=== PATIENT | male | born 1985 | race Caucasian/White ===

== ENCOUNTER 2017-01-20 18:32 | Inpatient (IN) | payer OTHER ==
[~2017-01-20] VITALS: Ht 188 cm; Wt 111.6 kg
[2017-01-20] VITALS (9 sets, daily range): BP systolic 112–155; BP diastolic 79–116
[2017-01-20] MEDS ORDERED: ADENOSINE 6 MG/2 ML (ADENOCARD) VIAL IV ONE ×2 (18:35→18:45)
[2017-01-20] MEDS ORDERED: NS IV 500 ML 500 ML ONE (18:39)
--- OUTSIDE RECORDS SUMMARY | 2017-01-20 18:39 | XMS REPORT ---
Author Author CHELY TORRES [facility] eClinicalWorks Address Unknown Phone Unavailable Care Team Providers Care Oncology Consultant Name Role Phone CHELY TORRES CP Unavailable Allergies No Known Allergies Problems Problem Type Condition ICD-9 Code Onset Dates Condition Status Assessment Influenza vaccine administered V04.81 Active Problem Need for prophylactic vaccination and inoculation, Influenza V04.81 Active Medications No Known Medications Procedures Procedure Coding System Code Date FLUARIX QUAD (3 & UP)-2014 CPT-4 70246 Dec 30, 2014 SINGLE IMMUNIZATION ADMIN CPT-4 95497 Dec 30, 2014 Results No Known Results Immunizations Vaccine Administration Date FLUARIX QUAD (3 & UP)-2014Dec 30, 2014 Summary Purpose eClinicalWorks Submission
--- OUTSIDE RECORDS SUMMARY | 2017-01-20 18:40 | XMS REPORT ---
Author Author CHELY TORRES [facility] Address [address] [place] [address] Care Team Providers Care Saw Superintendent Name Role Phone CHELY TORRES Unavailable PROBLEMS Type Condition ICD9-CM Code [id number] Code Onset Dates Condition Status SNOMED Code Problem Need for prophylactic vaccination and inoculation, Influenza V04.81 Active 011497028 Assessment Encounter for immunization Z23 Dec, Active [id number] ALLERGIES Unknown Allergies SOCIAL HISTORY No smoking Hx information available PLAN OF CARE VITAL SIGNS MEDICATIONS Unknown Medications RESULTS No Results PROCEDURES Procedure Date Ordered Related Diagnosis Body Site FLUARIX QUAD P-FREE 3 AND UP .50 2015Jan 12, 2016 SINGLE IMMUNIZATION ADMIN Jan 12, 2016 IMMUNIZATIONS Vaccine Route Administration Date Status FLUARIX QUAD P-FREE 3 AND UP .50 2015 IM Intramuscular Jan 12, 2016 Administered
--- OUTSIDE RECORDS SUMMARY | 2017-01-20 18:40 | XMS REPORT ---
Author Author CHELY TORRES [facility] Address [address] [place] [address] Care Team Providers Care Chief Analytics Officer Name Role Phone CHELY TORRES Unavailable PROBLEMS Type Condition ICD9-CM Code [id number] Code Onset Dates Condition Status SNOMED Code Problem Need for prophylactic vaccination and inoculation, Influenza V04.81 Active 204991210 ALLERGIES Unknown Allergies SOCIAL HISTORY No smoking Hx information available PLAN OF CARE VITAL SIGNS MEDICATIONS Unknown Medications RESULTS Name Result Date Reference Range INFLUENZA A & B (IN HOUSE) 2016-04-26 INFLUENZA A neg INFLUENZA B neg Control + Lot # [id number] Exp date 07/09/2018 RSV (IN HOUSE) 2016-04-26 RSV neg Control + Lot # [id number] Exp date 01/01/2018 PROCEDURES Procedure Date Ordered Related Diagnosis Body Site INFLUENZA ASSAY W/OPTIC Apr 26, 2016 RSV ASSAY W/OPTIC Apr 26, 2016 IMMUNIZATIONS No Known Immunizations
--- OUTSIDE RECORDS SUMMARY | 2017-01-20 18:40 | XMS REPORT | Continuity of Care Document ---
Author Author Formerly [facility] Address Unknown Phone Unavailable Allergies Medications Problems Date Dx Coded Attending Type Code Diagnosis Diagnosed By 01/16/2014 CHELY TORRES DO V04.81 FLU SHOT Procedures Results Encounters ACCT No. Visit Date/Time Discharge Status Pt. Type Provider Facility Loc./Unit Complaint [id number] 01/16/2014 12:45:00 01/16/2014 23: 59:59 CLS Outpatient CHELY TORRES DO
--- OUTSIDE RECORDS SUMMARY | 2017-01-20 18:40 | XMS REPORT ---
Author Author IZAIAH DELGADO Organization [facility] Address [address] [place] [address] Phone Unavailable Care Team Providers Care Fresh Work Inspector Name Role Phone IZAIAH DELGADO Unavailable Unavailable PROBLEMS Type Condition ICD9-CM Code IMF87-FY Code Onset Dates Condition Status SNOMED Code Problem Need for prophylactic vaccination and inoculation, Influenza V04.81 Active 443323177 Assessment Encounter for dental examination and cleaning without abnormal findings Z01.20 Dec, Active [id number] ALLERGIES Substance Reaction Event Type Date Status SEASONAL Unknown Non Drug Allergy Dec, Active SOCIAL HISTORY No smoking Hx information available PLAN OF CARE VITAL SIGNS MEDICATIONS Medication Instructions Dosage Frequency Start Date End Date Duration Status Jeanne Active RESULTS No Results PROCEDURES Procedure Date Ordered Related Diagnosis Body Site Billing Notes on claim Dec 23, 2015 COMP ORAL EVALUATION - NEW/EST PT Dec 23, 2015 INTRAORL-PERIAPICAL 1 FILM [id number] Dec 23, 2015 TOPICAL FLUORIDE VARNISH Dec 23, 2015 PROPHYLAXIS - ADULT Dec 23, 2015 [facility] Employee/Board adjustment Dec 23, 2015 INTRAORL-PERIAPICAL EA ADD FILM Dec 23, 2015 INTRAORL-PERIAPICAL EA ADD FILM Dec 23, 2015 BITEWINGS - FOUR FILMS Dec 23, 2015 INTRAORL-PERIAPICAL EA ADD FILM Dec 23, 2015 IMMUNIZATIONS No Known Immunizations
[2017-01-20] MEDS ORDERED: NS IV 500 ML 500 ML IV ONE (18:43)
[2017-01-20] MEDS ORDERED: ASPIRIN 81 MG CHEW (CHILDREN'S ASA) PO ONE (18:45)
--- NOTE | 2017-01-20 18:47 | ED Chest Pain ---
General Chief Complaint: Chest Pain Stated Complaint: CHEST PAIN Source: patient Exam Limitations: no limitations History of Present Illness Time seen by provider: 18:35 Initial Comments Patient has ER by private conveyance with chief complaint is having some chest pain early this afternoon that he took Tylenol extra strength for but then began to have a rapid palpitation-like sensation in his chest and felt lightheaded. He's never had anything like this before is no history of coronary disease nor family history of early coronary disease 40-50. He has no problems with upper cholesterol he may, thyroid, blood pressure, previous coronary disease, nausea, vomiting, numbness or tingling, shortness of breath or cough. No history of dysrhythmias. Only surgical history is tonsils and adenoids and dental surgeries. Prior to the sensation she was at home off work on his day off relaxing on the couch. He drinks alcohol only occasionally once or twice a week and then one to 2 beers at a time. Never to excess start to drop and numbness. He denies recreational drug use and is never smoked. Allergies and Home Medications Allergies Coded Allergies: No Known Drug Allergies (Unverified , 01/20/17) Home Medications Fexofenadine HCl 180 Mg Tablet, 180 MG PO DAILY, (Reported) Review of Systems Constitutional: No chills, No diaphoresis, No fever EENTM: No Blurred Vision, No Double Vision Respiratory: Denies Cough, Denies Shortness of Air Cardiovascular: Chest Pain (mild midsternal), Denies Edema, Denies Irregular Heart Rate, Lightheadedness, Palpitations, Denies Syncope Gastrointestinal: Denies Abdominal Pain, Denies Constipated, Denies Diarrhea, Denies Nausea, Denies Vomiting Genitourinary: Denies Burning, Denies Discharge Musculoskeletal: No back pain, No joint pain Skin: No pruritus, No rash Psychiatric/Neurological: Denies Headache, Denies Numbness, Denies Paresthesia Past Dyiswtg-Ohaowy-Utrrfj Hx Patient Social History Alcohol Use: Occasionally Uses Alcohol Beverage of Choice: Beer Recreational Drug Use: No Smoking Status: Never a Smoker 2nd Hand Smoke Exposure: No Recent Foreign Travel: No Contact w/Someone Who Travel: No Physical Exam Vital Signs Vital Sign - Last 12Hours 01/20/17 01/20/17 18:32 18:35 Temp 97.9 Pulse 128 Resp 21 B/P (MAP) 186/115 Pulse Ox 100 O2 Delivery Room Air Capillary Refill : General Appearance: WD/WN, Anxious, Mild Distress HEENT: PERRL/EOMI, Pharynx Normal Neck: Full Range of Motion, Supple Respiratory: Chest Non Tender, Lungs Clear, Normal Breath Sounds, No Accessory Muscle Use, No Respiratory Distress Cardiovascular: Regular Rate, Rhythm, No Edema, No Murmur, Normal Peripheral Pulses, Tachycardia Gastrointestinal: Normal Bowel Sounds, Non Tender, Soft Extremity: Normal Capillary Refill, Normal Inspection, Non Tender, No Pedal Edema Neurologic/Psychiatric: Alert, Oriented x3 Skin: Normal Color, Warm/Dry Lymphatic: No Adenopathy Progress/Results/Core Measures Results/Orders Lab Results Laboratory Tests Test 01/20/17 18:00 01/20/17 18:40 Range/Units Erythrocyte Sedimentation Rate 1 0-15 MM/HR Thyroid Stimulating Hormone (TSH) 2.18 0.35-4.94 UIU/ML White Blood Count 12.5 H 4.3-11.0 10^3/uL Red Blood Count 5.70 4.35-5.85 10^6/uL Hemoglobin 17.2 13.3-17.7 G/DL Hematocrit 49 40-54 % Mean Corpuscular Volume 87 80-99 FL Mean Corpuscular Hemoglobin 30 25-34 PG Mean Corpuscular Hemoglobin Concent 35 32-36 G/DL Red Cell Distribution Width 12.1 10.0-14.5 % Platelet Count 315 130-400 10^3/uL Mean Platelet Volume 9.5 7.4-10.4 FL Neutrophils (%) (Auto) 57 42-75 % Lymphocytes (%) (Auto) 32 12-44 % Monocytes (%) (Auto) 9 0-12 % Eosinophils (%) (Auto) 1 0-10 % Basophils (%) (Auto) 1 0-10 % Neutrophils # (Auto) 7.1 1.8-7.8 X 10^3 Lymphocytes # (Auto) 4.0 1.0-4.0 X 10^3 Monocytes # (Auto) 1.2 H 0.0-1.0 X 10^3 Eosinophils # (Auto) 0.2 0.0-0.3 10^3/uL Basophils # (Auto) 0.1 0.0-0.1 10^3/uL Prothrombin Time 13.0 12.2-14.7 SEC INR Comment 1.0 0.8-1.4 Activated Partial Thromboplast Time 28 24-35 SEC D-Dimer < 0.27 0.00-0.49 UG/ML Sodium Level 141 135-145 MMOL/L Potassium Level 3.1 L 3.6-5.0 MMOL/L Chloride Level 104 98-107 MMOL/L Carbon Dioxide Level 24 21-32 MMOL/L Anion Gap 13 5-14 MMOL/L Blood Urea Nitrogen 14 7-18 MG/DL Creatinine 1.38 H 0.60-1.30 MG/DL Estimat Glomerular Filtration Rate 59 BUN/Creatinine Ratio 10 Glucose Level 106 H 70-105 MG/DL Calcium Level 9.7 8.5-10.1 MG/DL Magnesium Level 2.3 1.8-2.4 MG/DL Total Bilirubin 1.4 H 0.1-1.0 MG/DL Aspartate Amino Transf (AST/SGOT) 27 5-34 U/L Alanine Aminotransferase (ALT/SGPT) 39 0-55 U/L Alkaline Phosphatase 50 40-136 U/L Myoglobin 25.6 10.0-92.0 NG/ML Troponin I < 0.30 <0.30 NG/ML Total Protein 9.1 H 6.4-8.2 GM/DL Albumin 5.0 H 3.2-4.5 GM/DL My Orders Orders - DONNA CAMPBELL Adenosine Injection (Adenocard Injection (01/20/17 18:35) Cbc With Automated Diff (01/20/17 18:43) Magnesium (01/20/17 18:43) Chest 1 View, Ap/Pa Only (01/20/17 18:43) Ekg Tracing (01/20/17 18:43) Cardiac Profile 1 (01/20/17 18:43) Comprehensive Metabolic Panel (01/20/17 18:43) Myoglobin Serum (01/20/17 18:43) Protime With Inr (01/20/17 18:43) Partial Thromboplastin Time (01/20/17 18:43) O2 (01/20/17 18:43) Monitor-Rhythm Ecg Trace Only (01/20/17 18:43) Lipid Panel (01/21/17 06:00) Aspirin Chewable Tablet (Baby Aspirin Ch (01/20/17 18:45) Saline Lock/Iv-Start (01/20/17 18:43) Saline Lock/Iv-Start (01/20/17 18:43) Ns Iv 500 Ml (Sodium Chloride 0.9%) (01/20/17 18:43) Adenosine Injection (Adenocard Injection (01/20/17 18:45) Ns Iv 500 Ml (Sodium Chloride 0.9%) (01/20/17 18:39) Diltiazem Injection (Cardizem Injection) (01/20/17 19:00) Sodium Chloride (Ad... W/Diltiazem Drip (01/20/17 19:00) Medications Given in ED Current Medications Medications Dose Ordered Sig/Meena Route Start Time Stop Time Status Last Admin Dose Admin Adenosine 6 mg ONCE ONCE IV 01/20/17 18:45 01/20/17 18:46 DC 01/20/17 18:50 6 MG Adenosine 6 mg STK-MED ONCE IV 01/20/17 18:35 01/20/17 18:43 DC 01/20/17 18:52 12 MG Aspirin 324 mg ONCE ONCE PO 01/20/17 18:45 01/20/17 18:46 DC 01/20/17 19:11 324 MG Diltiazem HCl 10 mg ONCE ONCE IVP 01/20/17 19:00 01/20/17 19:01 DC 01/20/17 19:11 10 MG Sodium Chloride 500 ml @ 0 mls/hr Q0M ONCE IV 01/20/17 18:43 01/20/17 18:46 DC 01/20/17 18:48 500 MLS/HR Vital Signs/I&O Vital Sign - Last 12Hours 01/20/17 01/20/17 01/20/17 18:32 18:35 19:11 Temp 97.9 97.9 Pulse 128 128 Resp 21 21 B/P (MAP) 186/115 186/115 Pulse Ox 100 100 O2 Delivery Room Air ECG Initial ECG Impression Date: Jan 20, 2017 Initial ECG Impression Time: 18:34 Initial ECG Rate: 129 Initial ECG Rhythm: S.Tach Initial ECG Intervals: Normal (148 ms and regular) Initial ECG Intervals QRS 94 ms and regular; QTC 434 seconds. Initial ECG Impression: SVT Initial ECG Comparisson: No Previous ECG Available Comment No T-wave elevation or depression. P waves visible and are regular and walked with the QRS at approximately 4 boxes. Diagnostic Imaging Diagonstic Imaging: Xray Plain Films/CT/US/NM/MRI: chest Comments Unremarkable for acute cardiopulmonary processes. NAME: MISAEL ABRAMS MED REC#: [id number] PHYSICIAN: DONNA CAMPBELL MD CC: RODNEY OROURKE DO; DONNA CAMPBELL Page 1 of [address] [facility], [place], [place] CC: RODNEY OROURKE DO; DONNA CAMPBELL Page 1 of 1 RADIOLOGY REPORT NAME: MISAEL ABRAMS MED REC#: [id number] PT STATUS: REG ER : 1985 PHYSICIAN: DONNA CAMPBELL MD ADMIT DATE: 01/20/17/ER Signed Date of Exam: 01/20/17 CHEST 1 VIEW, AP/PA ONLY INDICATION: Chest pain. TECHNIQUE: Single view chest 6:59 PM. CORRELATION STUDY: None FINDINGS: The heart size, mediastinal configuration and pulmonary vascularity are within normal limits. The lungs are clear with no consolidating infiltrate. There is no significant effusion or pneumothorax. IMPRESSION: 1. Negative portable chest. Dictated by: Dictated on workstation # [id number] Dict: 01/20/171905 Trans: 01/20/171905 Interpreted by: RODNEY OROURKE DO Electronically signed by: RODNEY OROURKE DO 01/20/171905 Reviewed: Reviewed by Me Departure Communication (Admissions) Time/Spoke to Admitting Phy: 19:18 Communication Discussed the case with Dr. Hugo Valle and she agrees to see the patient. Time/Spoke to Consulting Phy: 09:00 Communication/Consulting Spoke with Dr. Palomino discussed the case and EKG findings and he recommends Cardizem 10 mg bolus followed by Cardizem 10 mg per hour drip and he will see the patient. Because the white count recommend getting an ESR. Replace potassium orally and keep some fluids running normal saline at 100 mL an hour and make him nothing by mouth. 2005: Dr. Palomino came down and saw the patient and we discussed the EKG findings he feels is more likely an inappropriate sinus tachycardia. ESR was not remarkable he'll continue his workup inpatient. Impression Impression: Primary Impression: Supraventricular tachycardia Additional Impressions: Chest pain Qualified Codes: R07.9 - Chest pain, unspecified RUDY (acute kidney injury) Hypokalemia Disposition: ADMITTED INPATIENT Condition: Stable Admissions Decision to Admit Reason: Admit from ER (General) Decision to Admit/Date: Jan 20, 2017 Time/Decision to Admit Time: 20:16 Departure-Patient Inst. Referrals: UNKNOWN (PCP) Primary Care Physician Copy Copies To 1: CHIQUITA PALOMINO MD Copies To 2: HUGO VALLE MD, TITUS J Jan 20, 2017 18:47
[2017-01-20] MEDS ORDERED: DILTIAZEM DRIP 100 MG in SODIUM CHLORIDE (ADD-VANTAGE) 100 ML IV SCH ×2 (19:00→21:00)
[2017-01-20] MEDS ORDERED: DILTIAZEM 25 MG/5 ML INJ (CARDIZEM) VIAL IVP ONE (19:00)
[2017-01-20 19:02] LABS: BASOPHILS # (AUTO) 0.1 10^3/uL (0.0-0.1); BASOPHILS % (AUTO) 1 % (0-10); EOSINOPHILS # (AUTO) 0.2 10^3/uL (0.0-0.3); EOSINOPHILS % (AUTO) 1 % (0-10); LYMPHOCYTES % (AUTO) 32 % (12-44); MEAN CORPUSCULAR HEMOGLOBIN 30 PG (25-34); MEAN CORPUSCULAR HGB CONC 35 G/DL (32-36); MEAN CORPUSCULAR VOLUME 87 FL (80-99); MEAN PLATELET VOLUME 9.5 FL (7.4-10.4); MONOCYTES # (AUTO) 1.2 X 10^3 (0.0-1.0); MONOCYTES % (AUTO) 9 % (0-12); NEUTROPHILS # (AUTO) 7.1 X 10^3 (1.8-7.8); NEUTROPHILS % (AUTO) 57 % (42-75); PLATELET COUNT 315 10^3/uL (130-400); RED CELL DISTRIBUTION WIDTH 12.1 % (10.0-14.5); WHITE BLOOD COUNT 12.5 10^3/uL (4.3-11.0)
--- NOTE | 2017-01-20 19:09 | Diagnostic Imaging Report ---
INDICATION: Chest pain. TECHNIQUE: Single view chest 6:59 PM. CORRELATION STUDY: None FINDINGS: The heart size, mediastinal configuration and pulmonary vascularity are within normal limits. The lungs are clear with no consolidating infiltrate. There is no significant effusion or pneumothorax. IMPRESSION: 1. Negative portable chest. Dictated by: Dictated on workstation # [id number]
[2017-01-20 19:11] LABS: ALANINE AMINOTRANSFERASE 39 U/L (0-55); ANION GAP 13 MMOL/L (5-14); ASPARTATE AMINO TRANSFERASE 27 U/L (5-34); BILIRUBIN,TOTAL 1.4 MG/DL (0.1-1.0); BLOOD UREA NITROGEN 14 MG/DL (7-18); BUN/CREATININE RATIO 10; CALCIUM 9.7 MG/DL (8.5-10.1); CARBON DIOXIDE 24 MMOL/L (21-32); CHLORIDE 104 MMOL/L (98-107); CREATININE SERUM 1.38 MG/DL (0.60-1.30); GFR ESTIMATED 59; GLUCOSE 106 MG/DL (70-105); MAGNESIUM 2.3 MG/DL (1.8-2.4); POTASSIUM 3.1 MMOL/L (3.6-5.0); SODIUM 141 MMOL/L (135-145); TOTAL PROTEIN 9.1 GM/DL (6.4-8.2)
[2017-01-20] MEDS ORDERED: FEXO180T84 PO (19:12)
[2017-01-20 19:18] LABS: MYOGLOBIN SERUM 25.6 NG/ML (10.0-92.0)
[2017-01-20] MEDS ORDERED: KCL 20 MEQ TAB (K-DUR) PO ONE (19:30)
--- OUTSIDE RECORDS SUMMARY | 2017-01-20 20:05 | XMS REPORT | Continuity of Care Document ---
Author Author [facility] Address Unknown Phone Unavailable Allergies Medications Problems Date Dx Coded Attending Type Code Diagnosis Diagnosed By 01/16/2014 CHELY TORRES DO V04.81 FLU SHOT Procedures Results Encounters ACCT No. Visit Date/Time Discharge Status Pt. Type Provider Facility Loc./Unit Complaint [id number] 01/16/2014 12:45:00 01/16/2014 23: 59:59 CLS Outpatient CHELY TORRES DO
[2017-01-20] MEDS ORDERED: ASPIRIN E.C. 325 MG (ECOTRIN) TABLET PO NR (20:15)
--- NOTE | 2017-01-20 20:16 | Cardiology History & Physical ---
HPI-Cardiology Cardiology Consultation Date of Consultation 01/20/17 Date of Admission Time Seen by Provider: 20:10 Indication: chest pain, palpitation HPI 32-year-old gentleman with no significant past medical history except for seasonal allergy for which he take kqzm-cdu-caywdic medication, was in his usual state of health until this morning when he had mild left sided chest discomfort, became more persistent in the afternoon and started to have palpitation, felt heart rate around 160, came into the emergency room and noted to be with a heart rate around 138 appeared to be sinus tachycardia, given Adenosine without improvement, started on Cardizem drip, upper my evaluation was feeling better, heart rate is in the upper 80s and 90s, reporting improvement in his chest pain. The pain appeared to be repaired reducible on the left upper side of his chest. No nausea vomiting, no diarrhea, no fever or chills. Noted to have mild leukocytosis. PMH-Cardiology Seasonal Allergies Seasonal Allergies: No Surgeries Yes (WISDOM TEETH) Respiratory No Cardiovascular No Neurological No Genitourinary No Gastrointestinal No Musculoskeletal No Endocrine No HEENT No Cancer No Psychosocial No Social History Patient Social History Marrital Status: Employed/Student: employed Alcohol Use: Occasionally Uses Recreational Drug Use: No Smoking: Never smoker Recent Foreign Travel: No Contact w/other who traveled: No Recent Infectious Disease Expo: No Family Hx Other Family history of thyroid disease, hypertension ROS-Cardiology Review of Systems General: No Chills, No Night Sweats, No Fatigue, No Malaise, No Appetite HEENT: No Head Aches, No Visual Changes, No Eye Pain, No Ear Pain, No Dysphasia , No Sinus Congestion, No Post Nasal Drip, No Sore Throat Pulmonary: No Dyspnea, No Cough, No Pleuritic Chest Pain Cardiovascular: Chest Pain, Palpitations, Lt Headedness, No: Orthopnea, Paroxysmal Noc. Dyspnea, Edema Gastrointestinal: No: Nausea, Vomiting, Abdominal Pain, Diarrhea, Constipation , Melena, Hematochezia Genitourinary: No Dysuria, No Frequency, No Incontinence, No Hematuria, No Retention Musculoskeletal: No: neck pain, shoulder pain, arm pain, back pain, hand pain, leg pain, foot pain Neurological: No: Weakness, Numbness, Incoordination, Change in speech, Confusion, Seizures Home Medications & Allergies Allergies: Coded Allergies: No Known Drug Allergies (Unverified , 01/20/17) Home Medication List Reviewed: Yes Exam-Cardiology Vital Signs Vital Signs Date Time Temp Pulse Resp B/P (MAP) Pulse Ox O2 Delivery O2 Flow Rate FiO2 01/20/17 19:11 97.9 128 21 186/115 100 01/20/17 18:35 Room Air Exam General Appearance: Alert, Oriented X3, Cooperative, No Acute Distress HEENT: Atraumatic, PERRLA Respiratory: Clear to Auscultation, Normal Air Movement Cardiovascular: Regular Rate, Normal S1, Normal S2, No Murmurs Abdominal: Normal Bowel Sounds, Soft, No Tenderness, No Hepatosplenomegaly, No Masses Extremities: No Clubbing, No Cyanosis, No Edema, Normal Pulses, No Tenderness/ Swelling Skin: No Rashes, No Breakdown, No Significant Lesion Neuro: Normal Gait, Normal Speech, Strength at 5/5 X4 Ext, Normal Tone, Sensation Intact Psych/Mental Status: Mental Status NL, Mood NL Results Labs Labs Laboratory Tests 01/20/17 18:00: Erythrocyte Sedimentation Rate 1 01/20/17 18:40: White Blood Count 12.5H, Red Blood Count 5.70, Hemoglobin 17.2, Hematocrit 49, Mean Corpuscular Volume 87, Mean Corpuscular Hemoglobin 30, Mean Corpuscular Hemoglobin Concent 35, Red Cell Distribution Width 12.1, Platelet Count 315, Mean Platelet Volume 9.5, Neutrophils (%) (Auto) 57, Lymphocytes (%) (Auto) 32, Monocytes (%) (Auto) 9, Eosinophils (%) (Auto) 1, Basophils (%) (Auto) 1, Neutrophils # (Auto) 7.1, Lymphocytes # (Auto) 4.0, Monocytes # (Auto) 1.2H, Eosinophils # (Auto) 0.2, Basophils # (Auto) 0.1, Prothrombin Time 13.0, INR Comment 1.0, Activated Partial Thromboplast Time 28, Sodium Level 141, Potassium Level 3.1L, Chloride Level 104, Carbon Dioxide Level 24, Anion Gap 13 , Blood Urea Nitrogen 14, Creatinine 1.38H, Estimat Glomerular Filtration Rate 59, BUN/Creatinine Ratio 10, Glucose Level 106H, Calcium Level 9.7, Magnesium Level 2.3, Total Bilirubin 1.4H, Aspartate Amino Transf (AST/SGOT) 27, Alanine Aminotransferase (ALT/SGPT) 39, Alkaline Phosphatase 50, Myoglobin 25.6, Troponin I < 0.30, Total Protein 9.1H, Albumin 5.0H A/P-Cardiology Admission Diagnosis (1) Chest pain Qualifiers: Qualified Codes: R07.9 - Chest pain, unspecified Status: Acute Assessment & Plan: EKG appeared to have no acute ischemic abnormality, cardiac enzymes are normal, I will continue monitoring overnight, chest pain is probably due to tachycardia. Pain is atypical, slightly reproducible. Reporting improvement at this point (2) Supraventricular tachycardia Status: Acute Assessment & Plan: Appear to be in sinus tachycardia, responded to Cardizem, mild dehydration, receiving IV fluid, I will evaluate TSH and d-dimer. Continue with IV fluid. Monitor closely. (3) RUDY (acute kidney injury) Status: Acute Assessment & Plan: Mild renal insufficiency, could be secondary to dehydration , receiving IV fluids, monitor electrolytes (4) Hypokalemia Status: Acute Assessment & Plan: Received potassium in the emergency room, monitor electrolytes (5) Seasonal allergies Qualifiers: Qualified Codes: J30.1 - Allergic rhinitis due to pollen Status: Chronic Clinical Quality Measures AMI/AHF: ASA po Prior to arrival: CHIQUITA Nelson MD Jan 20, 2017 20:16
[2017-01-20] MEDS ORDERED: ONDANSETRON 4 MG/2 ML (SDV) Z0FRAN IV PRN (20:45)
[2017-01-20] MEDS ORDERED: fentaNYL INJECTION 100 MCG/2 ML AMP IV PRN (20:45)
[2017-01-20] MEDS ORDERED: CATHETER FLUSH 10 ML SYR IV PRN (20:45)
[2017-01-20] MEDS ORDERED: NITROGLYCERIN 0.4 MG SL TABS BTL 25'S SL PRN (20:45)
[2017-01-20] MEDS: NS IV 1000 ML 1,000 ML IV SCH ×2 (20:53)
[2017-01-20] MEDS ORDERED: ATORVASTATIN 40 MG (LIPITOR) TABLET PO SCH (21:00)
[2017-01-21] VITALS (11 sets, daily range): BP systolic 106–124; BP diastolic 72–94
[2017-01-21 04:55] LABS: BASOPHILS # (AUTO) 0.1 10^3/uL (0.0-0.1); BASOPHILS % (AUTO) 1 % (0-10); EOSINOPHILS # (AUTO) 0.1 10^3/uL (0.0-0.3); EOSINOPHILS % (AUTO) 1 % (0-10); LYMPHOCYTES % (AUTO) 32 % (12-44); MEAN CORPUSCULAR HEMOGLOBIN 30 PG (25-34); MEAN CORPUSCULAR HGB CONC 34 G/DL (32-36); MEAN CORPUSCULAR VOLUME 88 FL (80-99); MEAN PLATELET VOLUME 9.5 FL (7.4-10.4); MONOCYTES # (AUTO) 0.8 X 10^3 (0.0-1.0); MONOCYTES % (AUTO) 8 % (0-12); NEUTROPHILS # (AUTO) 5.6 X 10^3 (1.8-7.8); NEUTROPHILS % (AUTO) 59 % (42-75); PLATELET COUNT 256 10^3/uL (130-400); RED BLOOD COUNT 5.26 10^6/uL (4.35-5.85); RED CELL DISTRIBUTION WIDTH 12.1 % (10.0-14.5); WHITE BLOOD COUNT 9.6 10^3/uL (4.3-11.0)
[2017-01-21 05:21] LABS: ALANINE AMINOTRANSFERASE 33 U/L (0-55); ALBUMIN 4.2 GM/DL (3.2-4.5); ANION GAP 10 MMOL/L (5-14); ASPARTATE AMINO TRANSFERASE 20 U/L (5-34); BILIRUBIN,TOTAL 1.6 MG/DL (0.1-1.0); BLOOD UREA NITROGEN 11 MG/DL (7-18); BUN/CREATININE RATIO 10; CALCIUM 9.1 MG/DL (8.5-10.1); CARBON DIOXIDE 24 MMOL/L (21-32); CHLORIDE 108 MMOL/L (98-107); CHOLESTEROL 227 MG/DL (< 200); CREATININE SERUM 1.08 MG/DL (0.60-1.30); DIRECT LDL 160 MG/DL (1-129); GFR ESTIMATED > 60; GLUCOSE 89 MG/DL (70-105); MAGNESIUM 2.4 MG/DL (1.8-2.4); PHOSPHORUS 2.9 MG/DL (2.3-4.7); POTASSIUM 3.5 MMOL/L (3.6-5.0); SODIUM 142 MMOL/L (135-145); TOTAL PROTEIN 7.5 GM/DL (6.4-8.2); TRIGLYCERIDES 77 MG/DL (<150); VLDL CHOLESTEROL 15 MG/DL (5-40)
[2017-01-21 05:27] LABS: TROPONIN I < 0.30 NG/ML (<0.30)
[2017-01-21] MEDS: NS IV 1000 ML 1,000 ML IV SCH ×2 (05:58→06:09)
[2017-01-21] MEDS ORDERED: KCL 20 MEQ TAB (K-DUR) PO SCH (06:00)
[2017-01-21] MEDS ORDERED: KCL 20 MEQ TAB (K-DUR) PO ONE (06:00)
[2017-01-21] MEDS ORDERED: MAGNESIUM 1 GM/100 ML IVPB 100 ML IV SCH (06:00)
[2017-01-21] MEDS ORDERED: POTASSIUM CL 10MEQ/50ML IVPB 50 ML IV SCH (06:00)
[2017-01-21] MEDS ORDERED: ASPIRIN E.C. 81 MG (ECOTRIN) TAB PO SCH (09:00)
[2017-01-21] MEDS ORDERED: ASPIRIN E.C. 325 MG (ECOTRIN) TABLET PO SCH (09:00)
--- NOTE | 2017-01-21 09:25 | Short Stay Summary ---
History of Present Illness History of Present Illness Reason for visit/HPI 32-year-old gentleman with no significant past medical history except for seasonal allergy for which he take [id number] medication, was in his usual state of health until this morning when he had mild left sided chest discomfort, became more persistent in the afternoon and started to have palpitation, felt heart rate around 160, came into the emergency room and noted to be with a heart rate around 138 appeared to be sinus tachycardia, given Adenosine without improvement, started on Cardizem drip, upper my evaluation was feeling better, heart rate is in the upper 80s and 90s, reporting improvement in his chest pain. The pain appeared to be repaired reducible on the left upper side of his chest. No nausea vomiting, no diarrhea, no fever or chills. Noted to have mild leukocytosis. Date of Admission Jan 20, 2017 at 19:25 Date of Discharge January 21, 2017 Time Seen by Provider: 09:22 Attending Physician Nina Camacho MD Admitting Physician Sky[place],[facility] Allergies and Home Medications Allergies Coded Allergies: No Known Drug Allergies (Unverified , 01/20/17) Home Medications Fexofenadine HCl 180 Mg Tablet, 180 MG PO DAILY, (Reported) Past [id number] Hx Patient Social History Marrital Status: Employed/Student: employed Alcohol Use: Occasionally Uses Alcohol Beverage of Choice: Beer Recreational Drug Use: No Smoking Status: Never a Smoker 2nd Hand Smoke Exposure: No Physical Abuse Screen: No Sexual Abuse: No Recent Foreign Travel: No Contact w/other who traveled: No Recent Hopitalizations: No Recent Infectious Disease Expo: No Immunizations Up To Date Pediatric: No Date of Influenza Vaccine: Jan 11, 2017 Seasonal Allergies Seasonal Allergies: Yes Surgeries Yes (WISDOM TEETH,Left shoulder) Adenoidectomy, Orthopedic, Tonsillectomy Respiratory Yes Currently Using CPAP: No Currently Using BIPAP: No Cardiovascular No Neurological No Reproductive System Sexually Transmitted Disease: No HIV/AIDS: No Genitourinary No Gastrointestinal No Musculoskeletal No Endocrine History of Endocrine Disorders: No HEENT History of HEENT Disorders: No Loss of Vision: Denies Hearing Impairment: Denies Cancer No Psychosocial History of Psychiatric Problem: No Integumentary History of Skin or Integumenta: Yes Skin/Integumentary Disorders: Eczema Blood Transfusions History of Blood Disorders: No Adverse Reaction to a Blood Tr: No Family Medical History Family Hx: Dysphasia Hypercholesterolemia 19 FATHER, Onset:40's - 50 19 MOTHER, Onset:Unknown Hypertension 19 FATHER, Onset:40's - 50 19 MOTHER, Onset:Unknown Thyroid disease 19 FATHER, Onset:Unknown 19 MOTHER, Onset:Unknown Constitutional: see HPI EENTM: see HPI Respiratory: see HPI Cardiovascular: see HPI Gastrointestinal: see HPI Genitourinary: see HPI Musculoskeletal: see HPI Skin: see HPI Psychiatric/Neurological: No Symptoms Reported, See HPI Physical Exam Vital Signs Vital Sign - Last 12Hours 01/20/17 01/20/17 18:32 18:35 Temp 97.9 Pulse 128 Resp 21 B/P (MAP) 186/115 Pulse Ox 100 O2 Delivery Room Air Capillary Refill : Less Than 3 Seconds General Appearance: No Apparent Distress, WD/WN Eyes: Bilateral Eye Normal Inspection, Bilateral Eye PERRL, Bilateral Eye EOMI HEENT: PERRL/EOMI, TMs Normal, Normal ENT Inspection, Pharynx Normal Neck: Full Range of Motion, Normal Inspection, Non Tender, Supple, Carotid Bruit Respiratory: Chest Non Tender, Lungs Clear, Normal Breath Sounds, No Accessory Muscle Use, No Respiratory Distress Cardiovascular: Regular Rate, Rhythm, No Edema, No Gallop, No JVD, No Murmur, Normal Peripheral Pulses Gastrointestinal: Normal Bowel Sounds, No Organomegaly, No Pulsatile Mass, Non Tender, Soft Back: Normal Inspection, No CVA Tenderness, No Vertebral Tenderness Extremity: Normal Capillary Refill, Normal Inspection, Normal Range of Motion, Non Tender, No Calf Tenderness, No Pedal Edema Neurologic/Psychiatric: Alert, Oriented x3, No Motor/Sensory Deficits, Normal Mood/Affect Skin: Normal Color, Warm/Dry Lymphatic: No Adenopathy Clinical Quality Measures AMI/AHF: ASA po Prior to arrival: No DVT/VTE Risk/Contraindication: Risk Factor Score Per Nursin RFS Level Per Nursing on Admit: 1=Low/No VTE PPX Short Stay Diagnosis Discharge Diagnosis-Short Stay Admission Diagnosis: sinus tachycardia Palpitation Chest pain Hypertension Hyperlipidemia Final Discharge Diagnosis: sinus tachycardia Palpitation Chest pain Hypertension Hyperlipidemia Conclusion Labs Laboratory Tests 01/20/17 18:00: Erythrocyte Sedimentation Rate 1, Thyroid Stimulating Hormone (TSH) 2.18 01/20/17 18:40: White Blood Count 12.5H, Red Blood Count 5.70, Hemoglobin 17.2, Hematocrit 49, Mean Corpuscular Volume 87, Mean Corpuscular Hemoglobin 30, Mean Corpuscular Hemoglobin Concent 35, Red Cell Distribution Width 12.1, Platelet Count 315, Mean Platelet Volume 9.5, Neutrophils (%) (Auto) 57, Lymphocytes (%) (Auto) 32, Monocytes (%) (Auto) 9, Eosinophils (%) (Auto) 1, Basophils (%) (Auto) 1, Neutrophils # (Auto) 7.1, Lymphocytes # (Auto) 4.0, Monocytes # (Auto) 1.2H, Eosinophils # (Auto) 0.2, Basophils # (Auto) 0.1, Prothrombin Time 13.0, INR Comment 1.0, Activated Partial Thromboplast Time 28, D-Dimer < 0.27, Sodium Level 141, Potassium Level 3.1L, Chloride Level 104, Carbon Dioxide Level 24, Anion Gap 13, Blood Urea Nitrogen 14, Creatinine 1.38H, Estimat Glomerular Filtration Rate 59, BUN/Creatinine Ratio 10, Glucose Level 106H, Calcium Level 9.7, Magnesium Level 2.3, Total Bilirubin 1.4H, Aspartate Amino Transf (AST/SGOT ) 27, Alanine Aminotransferase (ALT/SGPT) 39, Alkaline Phosphatase 50, Myoglobin 25.6, Troponin I < 0.30, Total Protein 9.1H, Albumin 5.0H 01/21/17 00:35: Troponin I < 0.30 01/21/17 04:20: White Blood Count 9.6, Red Blood Count 5.26, Hemoglobin 15.9, Hematocrit 46, Mean Corpuscular Volume 88, Mean Corpuscular Hemoglobin 30, Mean Corpuscular Hemoglobin Concent 34, Red Cell Distribution Width 12.1, Platelet Count 256, Mean Platelet Volume 9.5, Neutrophils (%) (Auto) 59, Lymphocytes (%) (Auto) 32, Monocytes (%) (Auto) 8, Eosinophils (%) (Auto) 1, Basophils (%) (Auto) 1, Neutrophils # (Auto) 5.6, Lymphocytes # (Auto) 3.0, Monocytes # (Auto) 0.8, Eosinophils # (Auto) 0.1, Basophils # (Auto) 0.1, Sodium Level 142, Potassium Level 3.5L, Chloride Level 108H, Carbon Dioxide Level 24, Anion Gap 10, Blood Urea Nitrogen 11, Creatinine 1.08, Estimat Glomerular Filtration Rate > 60, BUN/ Creatinine Ratio 10, Glucose Level 89, Calcium Level 9.1, Magnesium Level 2.4, Total Bilirubin 1.6H, Aspartate Amino Transf (AST/SGOT) 20, Alanine Aminotransferase (ALT/SGPT) 33, Alkaline Phosphatase 42, Troponin I < 0.30, Total Protein 7.5, Albumin 4.2, Phosphorus Level 2.9, Triglycerides Level 77, Cholesterol Level 227H, LDL Cholesterol Direct 160H, VLDL Cholesterol 15, HDL Cholesterol 51 Conclusion/Plan Chest pain, palpitation, sinus tachycardia, improved at this time, Cardizem was discontinued. Patient's heart rate is in the 70s and 80s. He is asymptomatic. The chest pain is reproducible on the upper chest. Labs are normal, EKG did not show any acute abnormality. We will discharge home and follow-up as an outpatient Hypertension, better at this time, I instructed him on lifestyle modification, limiting salt and monitoring his blood pressure on a daily basis at home. Hyperlipidemia, discussed lifestyle modification, I recommend repeating lipids in 3 months prior to initiating any aggressive medical therapy Acute renal insufficiency, probably secondary to dehydration, renal function are back to normal with IV fluid, educated on maintaining good oral fluid intake and monitor renal function as an outpatient Hypokalemia, better. Monitor as an outpatient Mild leukocytosis, better without any treatment other than IV fluid, no signs of infection, sedimentation rate is 1 Family history of heart disease Seasonal allergy CHIQUITA LARIOS MD Jan 21, 2017 09:25
== END 2017-01-21 10:38 | disposition home or self-care (01) | DRG 310 ==
LOC: ER 18:36 → ICU 19:25
PROVIDERS: ADMIT Pediatrics; ATTEND Pediatrics
DX: I47.1 Supraventricular tachycardia (principal); N28.9 Disorder of kidney and ureter, unspecified; E86.0 Dehydration; E87.6 Hypokalemia; I10 Essential (primary) hypertension; E78.5 Hyperlipidemia, unspecified; J30.1 Allergic rhinitis due to pollen; Z82.49 Family history of ischemic heart disease and other diseases of the circulatory system
CPT/HCPCS: 36415; 71010; 80053; 80061; 83735; 83874; 84100; 84443; 84484; 85025; 85379; 85610; 85652; 85730; 87081; 93005; 93041; 93306; 96374; 96375